=== PATIENT | female | born 1975 | race Caucasian/White ===

== ENCOUNTER 2016-10-30 15:17 | Emergency (ER) | payer MEDICAID ==
[~2016-10-30] VITALS: Ht 162.6 cm; Wt 140.6 kg
[2016-10-30] MEDS ORDERED: VITAMIN D1000 UNI1 ORAL (15:34)
[2016-10-30] MEDS ORDERED: LISINOPRIL30 MG ORAL (15:34)
[2016-10-30] MEDS ORDERED: GLIPIZIDE5 MG ORAL (15:34)
[2016-10-30] MEDS ORDERED: JANUVIA25 MG ORAL (15:34)
[2016-10-30] MEDS ORDERED: METFORMIN HCL1000 M1 ORAL (15:34)
[2016-10-30 15:54] VITALS: BP 150/76
[2016-10-30] MEDS ORDERED: Silver Sulfadiazine Cream 25gm TOPIC ONE (16:00)
[2016-10-30] MEDS ORDERED: SILVADENE20 GM TP (16:02)
[2016-10-30] MEDS ORDERED: metFORMIN 500mg tab ORAL SCH (16:30)
[2016-10-30 16:56] LABS: BASOPHILS % (AUTO) 1.3 % (0.0-2.0); EOSINOPHILS % (AUTO) 1.8 % (0.0-3.0); LYMPHOCYTES % (AUTO) 22.5 % (20.0-45.0); MEAN CORPUSCULAR HEMOGLOBIN 25.7 PG (27.0-31.0); MEAN CORPUSCULAR HGB CONC 32.5 G/DL (32.0-36.0); MEAN CORPUSCULAR VOLUME 79 FL (80-99); MEAN PLATELET VOLUME 6.6 FL (6.5-10.1); MONOCYTES % (AUTO) 3.7 % (1.0-10.0); NEUTROPHILS % (AUTO) 70.8 % (45.0-75.0); PLATELET COUNT 417 K/UL (150-450); RED BLOOD COUNT 4.88 M/UL (4.20-5.40); RED CELL DISTRIBUTION WIDTH 13.6 % (11.6-14.8); WHITE BLOOD COUNT 11.9 K/UL (4.8-10.8)
[2016-10-30 16:59] LABS: ALANINE AMINOTRANSFERASE 8 U/L (3-33); ALBUMIN/GLOBULIN RATIO 0.8 (1.0-2.7); ANION GAP 18 (5-15); ASPARTATE AMINO TRANSFERASE 9 U/L (5-40); CALCIUM 9.6 mg/dL (8.6-10.2); CARBON DIOXIDE 22 mEQ/L (20-30); CHLORIDE 92 mEQ/L (98-107); CREATININE 0.9 mg/dL (0.5-0.9); GLOMERULAR FILTRATION RATE > 60 mL/min (>60); HEMOLYSIS 5; POTASSIUM 4.2 mEQ/L (3.4-4.9); SODIUM 132 mEQ/L (135-145); TOTAL PROTEIN 7.9 g/dL (6.6-8.7); TROPONIN I < 0.30 ng/mL (<=0.30)
--- NOTE | 2016-10-30 17:28 | Diagnostic Imaging Report ---
Indication: PAIN Technique: 2 views of the tibia and fibula Comparison: none Findings: Patient is status post education at the level of the ankle. No acute fractures. No dislocations. Amputation margins are clean. No radiopaque foreign body Impression: No acute process. Prior amputation
[2016-10-30 18:36] LABS: APPEARANCE,URINE CLEAR; KETONES,URINE NEGATIVE (NEGATIVE); LEUKOCYTE ESTERASE ,URINE NEGATIVE (NEGATIVE); NITRITE,URINE NEGATIVE (NEGATIVE); PH,URINE 6 (4.5-8.0); PROTEIN,URINE NEGATIVE (NEGATIVE); UROBILINOGEN,URINE NORMAL MG/DL (0.0-1.0)
--- NOTE | 2016-10-30 18:51 | Emergency Room Report ---
History of Present Illness General Chief Complaint: Skin Rash/Abscess Source: Patient Present Illness HPI This is a 41-year-old female who presented after having increased generalized weakness. Patient had gradual onset of symptoms. The patient was noted to have type 2 diabetes and had not been checking her blood sugar [place] The patient recent skin grafting approximate 3 weeks ago for coverage prior dictation. Patient had presented for wound check. The patient denied any fever. She reported increased pain to the stump area. Allergies: Coded Allergies: No Known Allergies (Unverified , 10/30/16) Patient History Past Medical History: see triage record, DM, HTN Reviewed Nursing Documentation: PMH: Agreed, PSxH: Agreed Nursing Documentation-PMH Past Medical History: No History, Except For Hx Hypertension: Yes Hx Diabetes: Yes Review of Systems All Other Systems: negative except mentioned in HPI Physical Exam Vital Signs Date Time Temp Pulse Resp B/P Pulse Ox O2 Delivery O2 Flow Rate FiO2 10/30/16 15:24 97.3 92 20 150/76 100 Room Air Sp02 EP Interpretation: reviewed, normal General Appearance: normal inspection, well appearing, no apparent distress, alert, GCS 15, obese Head: atraumatic ENT: normal ENT inspection, hearing grossly normal, normal voice Neck: normal inspection, full range of motion, supple, no bony tend Respiratory: normal inspection, lungs clear, normal breath sounds, no respiratory distress, no retraction, no wheezing Cardiovascular #1: regular rate, rhythm, no edema Gastrointestinal: normal inspection, normal bowel sounds, non tender, soft, no guarding, no hernia Genitourinary: no CVA tenderness Musculoskeletal: back normal, normal range of motion, other - aka Neurologic: normal inspection, alert, oriented x3, responsive, manufacturing technology analyst III-XII nml as tested, speech normal Psychiatric: normal inspection, judgement/insight normal, mood/affect normal Skin: no rash, other - stump posterior with ulceration, wound minimal erythema at margin Medical Decision Making Diagnostic Impression: Primary Impression: Visit for wound care Additional Impression: Diabetes ER Course Patient presented for wound check on skin graft. Differential diagnosis included was not limited to infected wound, nonhealed wound, neuroma, healed wound. Laboratory testing showed a minimally elevated white blood count as well as markedly elevated blood sugar.Patient prior history of diabetes. Patient recently moved to [place]. 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 Patient denied any fever. Patient was given IV insulin with improvement in her blood sugar. The patient was offered admission and she stated she preferred to leave the hospital. The patient is advised to follow up with [facility] [place] in 1-2 days. Patient is advised to return if any worsening condition or if any changes in status that are concerning. Labs Test 10/30/16 16:30 10/30/16 18:11 White Blood Count 11.9 K/UL (4.8-10.8) Red Blood Count 4.88 M/UL (4.20-5.40) Hemoglobin 12.5 G/DL (12.0-16.0) Hematocrit 38.5 % (37.0-47.0) Mean Corpuscular Volume 79 FL (80-99) Mean Corpuscular Hemoglobin 25.7 PG (27.0-31.0) Mean Corpuscular Hemoglobin Concent 32.5 G/DL (32.0-36.0) Red Cell Distribution Width 13.6 % (11.6-14.8) Platelet Count 417 K/UL (150-450) Mean Platelet Volume 6.6 FL (6.5-10.1) Neutrophils (%) (Auto) 70.8 % (45.0-75.0) Lymphocytes (%) (Auto) 22.5 % (20.0-45.0) Monocytes (%) (Auto) 3.7 % (1.0-10.0) Eosinophils (%) (Auto) 1.8 % (0.0-3.0) Basophils (%) (Auto) 1.3 % (0.0-2.0) Sodium Level 132 mEQ/L (135-145) Potassium Level 4.2 mEQ/L (3.4-4.9) Chloride Level 92 mEQ/L (98-107) Carbon Dioxide Level 22 mEQ/L (20-30) Anion Gap 18 (5-15) Blood Urea Nitrogen 18 mg/dL (7-23) Creatinine 0.9 mg/dL (0.5-0.9) Estimat Glomerular Filtration Rate > 60 mL/min (>60) Glucose Level 501 mg/dL (74-106) Lactic Acid Level 1.60 mmol/L (0.66-2.22) Calcium Level 9.6 mg/dL (8.6-10.2) Total Bilirubin 0.3 mg/dL (0.0-1.2) Aspartate Amino Transf (AST/SGOT) 9 U/L (5-40) Alanine Aminotransferase (ALT/SGPT) 8 U/L (3-33) Alkaline Phosphatase 82 U/L (35-104) Troponin I < 0.30 ng/mL (<=0.30) Total Protein 7.9 g/dL (6.6-8.7) Albumin 3.7 g/dL (3.5-5.2) Globulin 4.2 g/dL Albumin/Globulin Ratio 0.8 (1.0-2.7) Urine Color Pale yellow Urine Appearance Clear Urine pH 6 (4.5-8.0) Urine Specific [place] 1.010 (1.005-1.035) Urine Protein Negative (NEGATIVE) Urine Glucose (UA) 4+ (NEGATIVE) Urine Ketones Negative (NEGATIVE) Urine Occult Blood 1+ (NEGATIVE) Urine Nitrite Negative (NEGATIVE) Urine Bilirubin Negative (NEGATIVE) Urine Urobilinogen Normal MG/DL (0.0-1.0) Urine Leukocyte Esterase Negative (NEGATIVE) Last Vital Signs Date Time Temp Pulse Resp B/P Pulse Ox O2 Delivery O2 Flow Rate FiO2 10/30/16 15:54 97.3 90 20 150/76 100 Room Air Status: improved Disposition: HOME, SELF-CARE Condition: Stable Scripts Silver Sulfadiazine (SILVADENE) 20 Gm Cream..g. 20 GM TP DAILY, #300 GM Prov: Ren Rhodes 10/30/16 Referrals: NON PHYSICIAN (PCP) Patient Instructions: Skin Ulcer Ren Rhodes Oct 30, 2016 18:51
[2016-10-30 18:57] LABS: BACTERIA,URINE FEW /HPF; SQUAMOUS EPITHELIAL CELL,UR FEW /LPF (NONE/OCC); WBC,URINE 0-2 /HPF (0 - 2); YEAST,URINE FEW /HPF
[2016-10-30 18:58] VITALS: BP 139/75
[2016-10-30 19:12] VITALS: BP 139/75
== END 2016-10-30 19:24 | disposition home or self-care (01) ==
LOC: EMR 17:45
DX: E11.9 Type 2 diabetes mellitus without complications (principal); Z94.5 Skin transplant status; I10 Essential (primary) hypertension
CPT/HCPCS: 36415; 73590; 80053; 81001; 83605; 84484; 85025; 87086; 96374; 96375; 99284; J1815; J7040